=== PATIENT | male | born 1965 | race Caucasian/White ===

== ENCOUNTER 2017-04-07 13:35 | Inpatient (IN) ==
--- NOTE | 2017-04-06 21:27 | Discharge Summary ---
<DamarisTheodora rangelKesha L - Last Filed: 04/06/17 21:25> Date of Encounter: 04/06/17 - Discharge Diagnosis (1) Status post total knee replacement, right Priority: Primary Status: Acute (2) Arthritis of knee, right Priority: Primary Status: Acute (3) HTN (hypertension) Priority: Secondary Status: Chronic Qualifiers: Hypertension type: essential hypertension Qualified Code(s): I10 - Essential (primary) hypertension (4) CAD (coronary artery disease) Priority: Secondary Status: Chronic Qualifiers: Coronary Disease-Associated Artery/Lesion type: unspecified vessel or lesion type [place] vs. transplanted heart: [place] heart Associated angina: angina presence unspecified Qualified Code(s): I25.10 - Atherosclerotic heart disease of [place] coronary artery without angina pectoris (5) Obesity Priority: Secondary Status: Chronic Qualifiers: Obesity type: due to excess calories Obesity classification: unspecified obesity classification Serious obesity comorbidity presence: without serious comorbidity Qualified Code(s): E66.09 - Other obesity due to excess calories (6) Atrial fibrillation Priority: Secondary Status: Chronic Qualifiers: Atrial fibrillation type: unspecified Qualified Code(s): I48.91 - Unspecified atrial fibrillation (7) SKYLER (obstructive sleep apnea) Priority: Secondary Status: Chronic (8) Chronic pain Priority: Secondary Status: Chronic Comments: Holding chronic pain medication - Percocet 5/325 BID. Qualifiers: Chronic pain type: chronic pain syndrome Qualified Code(s): G89.4 - Chronic pain syndrome (9) jail current use of anticoagulant therapy Priority: Secondary Status: Chronic Comments: Resume Xarelto 20mg daily same day of surgery* - Discharge Medications Home Medications: OxyCODONE Immed Rel [Roxicodone 5 MG] 5 - 10 mg PO Q6HR PRN #40 tablet 04/06/17 [Rx] Aspirin 81 mg PO DAILY 04/07/17 [History] Atorvastatin [Lipitor] 40 mg PO DAILY 04/07/17 [History] Digoxin [Lanoxin] 0.125 mg PO DAILY 04/07/17 [History] Furosemide [Lasix] 80 mg PO DAILY 04/07/17 [History] Lisinopril [Zestril] 5 mg PO DAILY 04/07/17 [History] Metoprolol Succinate 200 mg PO DAILY 04/07/17 [History] Rivaroxaban [Xarelto] 20 mg PO DAILY 04/07/17 [History] Allergies/Adverse Reactions: 3 Allergy/AdvReac Type Severity Reaction Status Date / Time Sulfa (Sulfonamide AdvReac Severe Anaphylaxis Verified 04/07/17 13:53 Antibiotics) dye AdvReac Severe Anaphylaxis Uncoded 04/01/17 10:20 perflutren lipid microsphere AdvReac Severe Anaphylaxis Uncoded 04/01/17 10:20 Primary care physician: PCP NONE - Patient Status Disposition: Home, Self-Care Condition: Good - Discharge Instructions Follow Up With: NONE,PCP [Primary Care Provider] - - Hospital Course Hospital course: Mr. Bailey is a 52 year old male - Time Spent with Patient Total time spent providing and/or coordinating discharge services: <Can Vernon - Last Filed: 04/09/17 06:34> Date of Encounter: 04/09/17 Time of Encounter: 06:34 - Discharge Diagnosis (1) Morbid obesity with BMI of 45.0-49.9, adult Priority: Secondary Status: Chronic (2) Status post total knee replacement, right Priority: Primary Status: Acute (3) Arthritis of knee, right Priority: Primary Status: Chronic (4) HTN (hypertension) Priority: Secondary Status: Chronic Qualifiers: Hypertension type: essential hypertension Qualified Code(s): I10 - Essential (primary) hypertension (5) CAD (coronary artery disease) Priority: Secondary Status: Chronic Qualifiers: Coronary Disease-Associated Artery/Lesion type: unspecified vessel or lesion type [place] vs. transplanted heart: [place] heart Associated angina: angina presence unspecified Qualified Code(s): I25.10 - Atherosclerotic heart disease of [place] coronary artery without angina pectoris (6) Obesity Priority: Secondary Status: Chronic Qualifiers: Obesity type: due to excess calories Obesity classification: unspecified obesity classification Serious obesity comorbidity presence: without serious comorbidity Qualified Code(s): E66.09 - Other obesity due to excess calories (7) Atrial fibrillation Priority: Secondary Status: Chronic Qualifiers: Atrial fibrillation type: unspecified Qualified Code(s): I48.91 - Unspecified atrial fibrillation (8) SKYLER (obstructive sleep apnea) Priority: Secondary Status: Chronic (9) Chronic pain Priority: Secondary Status: Chronic Qualifiers: Chronic pain type: chronic pain syndrome Qualified Code(s): G89.4 - Chronic pain syndrome (10) jail current use of anticoagulant therapy Priority: Secondary Status: Chronic Primary care physician: PCP NONE - Patient Status Functional capacity at discharge: uses cane/walker Overall status at discharge: patient is progressing back to baseline - Hospital Course Hospital course: Mr. Bailey is a 52 year old male As post right total knee replacement The patient had an uneventful postoperative course. They received antibiotics and physical therapy and were discharged in stable condition. There will follow -up in the office in 2 weeks. - Time Spent with Patient Total time spent providing and/or coordinating discharge services:
--- NOTE | 2017-04-07 14:10 | History & Physical Report ---
Date of Encounter: 04/07/17 Time of Encounter: 14:09 24 Hour HP Update - Instructions Instructions: If the History and Physical is less than 30 days old and was completed prior to A.M. admission and or procedure and has NOT been updated on calendar day of procedure please complete this update prior to performing procedure. - Update Patient reports changes in Medical Condition: No Changes in examination, assessment, or condition: No Changes in Medication: No Preop tests/diagnostics Reviewed: No Surgery Remains Indicated: Yes Consent for Planned Operative Procedure(s) Verified: Yes - Pre-Operative Checklist Preoperative Checklist Indicated: No Prophylactic Antibiotic Ordered: Yes Is VTE Prophylaxis Indicated?: Yes
--- NOTE | 2017-04-07 14:14 | Anesthesia Evaluation PreOp ---
Date of Encounter: 04/07/17 Time of Encounter: 14:12 - Past History Planned Operation: r tka Cardiac History: [place], HTN, Hyperlipidemia, Arrhythmia (af), Cardiac Stent (lad, bms), Other (echo 04/03: lv systolic fct appears nl, rv appears nl size and fct... however, echo from 01/30 ef 30, but that was af/rvr. denies orthopnea/ pnd. +bilat ankle edema (r>L) with ecchymosis r>l (venous stasis)) Pulmonary History: Asthma, Snore SALVAGER History: Denies Any Significant HX Other Medical History: Denies Any Significant HX Anesthesia History: No Prior Anesthetic Complications, Past Anesthesia (vv, t&a , stent) Alcohol Use: occasionally Drug use: none Medications and Allergies OxyCODONE Immed Rel [Roxicodone 5 MG] 5 - 10 mg PO Q6HR PRN #40 tablet 04/06/17 [Rx] Aspirin 81 mg PO DAILY 04/07/17 [History] Atorvastatin [Lipitor] 40 mg PO DAILY 04/07/17 [History] Digoxin [Lanoxin] 0.125 mg PO DAILY 04/07/17 [History] Furosemide [Lasix] 80 mg PO DAILY 04/07/17 [History] Lisinopril [Zestril] 5 mg PO DAILY 04/07/17 [History] Metoprolol Succinate [Metoprolol Succinate] 200 mg PO DAILY 04/07/17 [History] Rivaroxaban [Xarelto] 20 mg PO DAILY 04/07/17 [History] 3 Allergy/AdvReac Type Severity Reaction Status Date / Time Sulfa (Sulfonamide AdvReac Severe Anaphylaxis Verified 04/07/17 13:53 Antibiotics) dye AdvReac Severe Anaphylaxis Uncoded 04/01/17 10:20 perflutren lipid microsphere AdvReac Severe Anaphylaxis Uncoded 04/01/17 10:20 - Meds/Allergy Pre-op Review Medications Reviewed: Yes Allergies Reviewed: Yes Beta Blockers on Current Med List: Yes If Beta Blockers taken, Date/Time (Last Dose taken): toprol xl at 0900 Anesthesia Results - Labs Laboratory Tests 03/24/17 03/24/17 03/24/17 07:02 07:02 07:02 Hgb 15.6 Hct 47.4 Plt Count 198 PT 12.0 INR 1.1 Sodium 140 Potassium 4.5 Creatinine 0.90 Hemoglobin A1c 03/24/17 07:02 Hgb Hct Plt Count PT INR Sodium Potassium Creatinine Hemoglobin A1c 6.1 H - Imaging EKG: report reviewed (04/03: af, rbbb, inf mi) Anesthesia Exam O2 Sat Height 1.88 m Weight 171.458 kg Height: 1.88 Weight: 171 NPO (# of Hours): >8 - HEENT Pupil (Motor): Pupils equal, EOMI Mallampati: III Teeth: Poor dentition Oral Opening: Greater than 3 (good underbite) - SALVAGER LOC: Oriented SALVAGER Motor: Normal RUE, Normal LUE, Normal RLE, Normal LLE, Normal Face SALVAGER Sensory: Normal: RUE, LUE, RLE, LLE, Face - Cardiac Rhythm: Regular Murmur: None - Pulmonary Breath Sounds: bilateral Clear Respiratory Effort: Symmetrical Anesthesia Assess/Plan ASA Score: 3 (lidocaine and ketamine gtt for analgesia, plus toradol) Modified Juliana Scale for Level of Consciousness: Cooperative, oriented, and tranquil Anesthetic Plan: General, Regional Monitoring Plan: Standard Monitors Recovery Plan: PACU
[2017-04-07] MEDS ORDERED: Ringers Solution, Lactated 1,000 ML IVC SCH (14:30)
[2017-04-07] MEDS ORDERED: CloNIDine Patch 0.1 MG PATCH (WEEKLY) TD SCH (14:30)
[2017-04-07] MEDS ORDERED: Lidocaine -MPF 1% 2 ML VIAL ID ONE (14:40)
[2017-04-07] MEDS ORDERED: CeFAZolin Pre 3,000 MG/100 ML 3,000 MG/100 ML BAG IVPB ONE (14:40)
[2017-04-07] MEDS ORDERED: Albuterol 2.5 MG/3 ML NEBULIZER ONE (14:44)
[2017-04-07] MEDS ORDERED: Plasma-Lyte A (PH 7.4) 1,000 ML IVC SCH (14:45)
[2017-04-07] MEDS: Albuterol 2.5 MG/3 ML NEBULIZER IH ONE (14:47)
[2017-04-07] MEDS ORDERED: *HR* FentaNYL (PF) 100 MCG/2 ML VIAL ONE (15:33)
[2017-04-07] MEDS ORDERED: Lidocaine -MPF 2% 2 ML VIAL ONE (15:34)
[2017-04-07] MEDS ORDERED: *HR* Succinylcholine 200 MG/10 ML VIAL IVP ONE (15:34)
[2017-04-07] MEDS ORDERED: *HR* Midazolam HCl 2 MG/2 ML VIAL ONE (15:34)
[2017-04-07] MEDS ORDERED: *HR* Propofol 200 MG/20 ML VIAL IVP ONE ×2 (15:34→16:42)
[2017-04-07] MEDS ORDERED: ROPIVACAINE HCL/PF 0.5% 30 ML VIAL ONE (16:21)
[2017-04-07] MEDS ORDERED: Bupivacaine/Clonidine Syringe 1 EACH SYRINGE ONE (16:22)
--- NOTE | 2017-04-07 16:48 | Anesthesia Procedures ---
Date of Encounter: 04/07/17 Time of Encounter: 16:47 Procedures: Anesthesia - Nerve Block Procedure Date: 04/07/17 Time: 16:46 Allergies/Adv Reactions: 3 Allergy/AdvReac Type Severity Reaction Status Date / Time Sulfa (Sulfonamide AdvReac Severe Anaphylaxis Verified 04/07/17 13:53 Antibiotics) dye AdvReac Severe Anaphylaxis Uncoded 04/01/17 10:20 perflutren lipid microsphere AdvReac Severe Anaphylaxis Uncoded 04/01/17 10:20 Pre-op Diagnosis: right knee oa Surgical Procedure: right tka Checklist: Correct Patient Identifier, Correct procedure, History checked Correct side: Right Blood Thinner: No Monitor Applied: EKG, BP, Pulse Oximetry Supplemental Oxygen via Nasal Cannula (L/min): 2 Sedation: Versed (mg): 2 Sedation: Fentanyl (mcg): 100 Indication: Post Op Analgesia Pre-op Neuro Deficits: No Block Type: Femoral (0.5% ropivicaine), Other (ipack 0.25% bupivicaine 20cc) Catheter placed: No Sterile Technique: Yes Ultrasound used: Yes Anatomy identified: Yes Visual spread of Local: Yes Neuro Stimulation: No Blood on Needle Aspiration: No Smooth Injection of Local: Yes Pain with Injection of Local: No Prep: Chlorhexadine Needle: 21 x 100 mm Stimuplex Local: 0.25% Bupivicaine w/Clonidine 20 mcg/cc, Ropivacaine Volume (cc): 50 Number of Attempts: 1 Complications: None/effective block
[2017-04-07] MEDS ORDERED: Ondansetron 4 MG/2 ML VIAL IVP ONE (16:49)
[2017-04-07] MEDS ORDERED: *HR* HYDROmorphone (PF) 1 MG/ML SYRINGE IVP PRN ×2 (16:49→19:44)
[2017-04-07] MEDS ORDERED: Dexamethasone 4 MG/ML VIAL ONE (17:55)
[2017-04-07] MEDS ORDERED: Ondansetron 4 MG/2 ML VIAL ONE (17:55)
[2017-04-07] MEDS ORDERED: *HR* Enoxaparin 30 MG/0.3 ML SYRINGE SQ SCH (18:00)
--- NOTE | 2017-04-07 18:06 | Orthopedic Operative Note ---
Date of procedure: 04/07/17 Pre-op diagnosis: Right knee arthritis Post-op diagnosis: same Procedure: Procedure: Right Total knee replacement Estimated blood loss: 400 cc Hardware: Metal and polyethylene replacement: Biomet Femur: 70, 22 x 120 Tibia: 83, 18 x 120 Maegan insert: 14 Patella: 37 Exam Under anesthesia: Loss full extension 10 degrees full flexion Procedural Notes: Grade 4 arthritic changes all 3 compartments. Operative procedure: The patient was brought to the operating room and placed on the operating room table. After general anesthesia was administered the operative knee was examined. Findings were noted in the exam under anesthesia. The operative extremity was prepped and draped in sterile surgical fashion. The patient received IV antibiotics prior to skin incision. A standard midline incision was made centered over the patella. The incision was made through the skin and subcutaneous tissue. A medial parapatellar tendon approach was performed. Care was taken to preserve tissue along the medial aspect of the patella. And to protect the patella tendon. The deep MCL was released off the medial tibia. The infra patella fat pad was excised. Knee was brought into flexion. The entry hole was made for the intramedullary femoral guide. The guide was seated in 6 degrees of valgus. Anterior cut was made followed by the distal cut. The PCL the medial and the lateral menisci were excised. The tibia was subluxed forward. The entry hole was made for the intramedullary tibial guide. Guide was seated to resect 2 mm off the more abnormal side. The knee was brought into flexion patient noted to have grade 4 arthritic changes all 3 compartments. The distal femur was sized to a 70 The femur was first reamed to a running 2 x 120 The femoral guide was seated, the anterior cut was made followed by the posterior condylar cut, followed by the chamfer cuts. The finishing guide was seated the box cut was made. Trial had good fit and fixation The tibia was sized to a an 83 The tibia was first reamed 18 x 120 Trial reduction revealed full extension no varus valgus instability with the appropriate 14 insert. The patella was everted and cut was made at the level of the insertion of the quadriceps and patella tendon. The patella was sized to a 37 the guide was seated and the lug holes are drilled. Trial reduction revealed excellent patella tracking. All trial components were removed all bony surfaces were irrigated. Components were assembled on the back table. The femur was cemented first followed by the tibia. The 14 Maegan was seated and secured. The knee was brought into full extension. The patella was cemented and held in place with the patellar holding clamp. After the cement had hardened, the knee sat for 2 minutes with a Betadine saline solution. The knee was closed by the PA. The knee was then irrigated out with 2 L of pulse irrigation. The extensor mechanism was closed with #2 FiberWire suture and #2 PDS suture. The subcutaneous tissue was then irrigated and closed deep with #1 PDS suture superficially with 0 PDS suture and skin was closed with skin mirian The patient was then placed in a sterile dressing and a postoperative brace extubated and transferred to recovery room in stable condition. Anesthesia: DANELLE Surgeon: Can Vernon Intellectual Property Manager: Kesha Barillas Condition: stable Disposition: PACU
--- NOTE | 2017-04-07 19:18 | Anesthesia Evaluation Post Op ---
Date of Encounter: 04/07/17 Time of Encounter: 19:18 - Vital Signs Vital Signs: Vital Signs/O2 Sat, Most Current Temp Pulse Resp BP Pulse Ox 97.4 F L 90 14 106/83 93 04/07/17 19:12 04/07/17 19:12 04/07/17 19:12 04/07/17 19:12 04/07/17 19:12 - Lungs Lungs: Clear Ascult./Percussion - Cardiovascular Regular Rate - Mental Status Mental Status: Alert & Oriented, Answers Appropriately - Pain Pain Scale: 0 Pain Scale used: Numeric (1 - 10) - Nausea Vomiting Nausea Vomiting: Not Present - Hydration Hydration: Ice chips, Has not voided - Discharge PostOp Status: Transfer Patient to floor
[2017-04-07 19:28] LABS: Hematocrit 45.3 % (37.5-50.1); Hemoglobin 14.5 g/dL (12.9-16.9)
[2017-04-07] MEDS ORDERED: *HR* HYDROmorphone 2 MG/ML SYRINGE ONE (19:38)
[2017-04-07] MEDS ORDERED: MOM Conc 10 ML UD.LIQ PO PRN (19:44)
[2017-04-07] MEDS ORDERED: Naloxone 0.4 MG/ML INJ IVP PRN (19:44)
[2017-04-07] MEDS ORDERED: Temazepam 15 MG CAPSULE PO PRN (19:44)
[2017-04-07] MEDS ORDERED: *HR* OxyCODONE Immed Rel 5 MG TABLET PO PRN (19:44)
[2017-04-07] MEDS ORDERED: Ondansetron 4 MG/2 ML VIAL IVP PRN (19:44)
[2017-04-07] MEDS ORDERED: Sennosides 8.6 MG TABLET PO PRN (19:44)
[2017-04-07] MEDS: ceFAZolin 3,000 MG in D5% in Water 100 ML IVPB SCH (20:48)
[2017-04-08] MEDS: ceFAZolin 3,000 MG in D5% in Water 100 ML IVPB SCH (04:36)
[2017-04-08] MEDS: *HR* OxyCODONE Immed Rel 5 MG TABLET PO PRN ×5 (04:36→20:56)
[2017-04-08] MEDS: Ringers Solution, Lactated 1,000 ML IVC SCH ×3 (04:37→22:26)
[2017-04-08 05:41] LABS: Hemoglobin 13.8 g/dL (12.9-16.9)
--- NOTE | 2017-04-08 06:40 | Orthopedics Progress Note ---
Date of Encounter: 04/08/17 Time of Encounter: 06:40 - Assessment and Plan (1) Morbid obesity with BMI of 45.0-49.9, adult Current Visit: Yes Status: Chronic (2) Status post total knee replacement, right Current Visit: Yes Status: Acute (3) Arthritis of knee, right Current Visit: Yes Status: Chronic (4) HTN (hypertension) Current Visit: Yes Status: Chronic Qualifiers: Hypertension type: essential hypertension Qualified Code(s): I10 - Essential (primary) hypertension (5) CAD (coronary artery disease) Current Visit: Yes Status: Chronic Qualifiers: Coronary Disease-Associated Artery/Lesion type: unspecified vessel or lesion type [place] vs. transplanted heart: [place] heart Associated angina: angina presence unspecified Qualified Code(s): I25.10 - Atherosclerotic heart disease of [place] coronary artery without angina pectoris (6) Obesity Current Visit: Yes Status: Chronic Qualifiers: Obesity type: due to excess calories Obesity classification: unspecified obesity classification Serious obesity comorbidity presence: without serious comorbidity Qualified Code(s): E66.09 - Other obesity due to excess calories (7) Atrial fibrillation Current Visit: Yes Status: Chronic Qualifiers: Atrial fibrillation type: unspecified Qualified Code(s): I48.91 - Unspecified atrial fibrillation (8) SKYLER (obstructive sleep apnea) Current Visit: Yes Status: Chronic (9) Chronic pain Current Visit: Yes Status: Chronic Qualifiers: Chronic pain type: chronic pain syndrome Qualified Code(s): G89.4 - Chronic pain syndrome (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 Afebrile vital signs stable. Operative extremity: Neurovascularly intact Dressing clean dry and intact Calves nontender Assessment and plan: Continue with postoperative care Hematocrit 43 Objective Vital signs: Vital Signs Temp Pulse Resp BP Pulse Ox 04/08/17 04:29 98.4 F 88 18 124/82 93 04/07/17 23:59 98.0 F 75 18 104/72 93 04/07/17 22:45 97.6 F 97 16 100/70 94 04/07/17 21:45 97.6 F 88 18 114/79 95 04/07/17 20:45 75 16 106/70 94 04/07/17 20:15 71 16 112/72 96 04/07/17 19:45 97.4 F L 81 16 123/81 96 04/07/17 19:22 97.4 F L 73 14 108/76 94 04/07/17 19:12 97.4 F L 90 14 106/83 93 04/07/17 19:02 92 14 96/79 94 04/07/17 18:52 78 16 106/65 96 04/07/17 18:42 97.3 F L 82 16 101/52 97 04/07/17 16:52 68 16 104/60 99 04/07/17 16:37 68 16 106/63 98 04/07/17 16:30 84 18 111/88 96 04/07/17 16:25 98.1 F 66 16 94/64 93 04/07/17 15:08 98.1 F 66 16 94/64 93 Intake and Output 04/07/17 04/07/17 04/08/17 15:59 23:59 07:59 Intake Total 100 / 100 1187 / 1187 Output Total 400 / 400 Balance -300 / -300 1187 / 1187 Intake: IV Fluids 100 / 100 100 / 100 Ancef 3,000 MG In 100 / 100 100 / 100 Dextrose 5% 100 ML @ 200 mls/hr IVPB Q8H BRODY Rx#: [id number] Oral 1087 / 1087 Output: Estimated Blood Loss 400 / 400 Other: # Voids 4 Weight 171.458 kg 171.458 kg - Labs CBC & BMP: 04/08/17 04:33 - VTE Documentation of Mechanical Device: Venous foot pump, device Consult Discharge Plan - Plan Referrals: NONE,PCP [Primary Care Provider] -
[2017-04-08] MEDS: Furosemide 40 MG TABLET PO SCH (08:39)
[2017-04-08] MEDS: Aspirin 81 MG TAB.CHEW PO SCH (08:39)
[2017-04-08] MEDS: *HR* Digoxin 0.125 MG TABLET PO SCH (08:40)
[2017-04-08] MEDS: *HR* Rivaroxaban 10 MG TABLET PO SCH (08:40)
[2017-04-08] MEDS: Metoprolol XL (24 HR) Succ 50 MG TAB.ER.24H PO SCH (08:41)
[2017-04-08 11:57] LABS: BUN/Creatinine Ratio 20 (6-26); Blood Urea Nitrogen 19 mg/dL (8-26); Calcium 8.8 mg/dL (8.6-10.8); Carbon Dioxide 24 mEq/L (19-29); Chloride 103 mEq/L (98-109); Glucose 130 mg/dL (70-99); Osmolality,Calculated 288 (280-300); Potassium 5.4 mEq/L (3.5-4.5); Sodium 137 mEq/L (136-145); eGFR For African Americans > 60 (> 60); eGFR For Non-African Americans > 60 (> 60)
--- NOTE | 2017-04-08 12:05 | Event Note ---
Date of Encounter: 04/08/17 Time of Encounter: 12:04 PCR - Right TKR - POD#1 Patient seen at bedside. Pain control: adequate - Chronic pain medication: Percocet BID - on hold Comorbidities: A.Fib - SKYLER Participating in PT. All questions and concerns addressed. Educated on use of incentive spirometer, ambulation, and hydration. Patient educated on post-operative restrictions and care. Addressed: D/C plan:. Home health or Outpatient* *Resumed Xarelto 04/08/17
--- NOTE | 2017-04-08 16:29 | Physician Discharge Referral ---
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 For more information, call the 2,10E+07 Tobacco Quit Line at 8-936-UZSI-NOW. - Dressing/Wound Care Type of Dressing/Treatments w/Frequency: Opsite dressing, leave intact until first post-operative visit. If dressing becomes >50% saturated, contact office, remove dressing and place appropriate dressing in its place. Do not allow for dressing to get wet. [place] in place, plan to remove at post-operative day #14-16. - Diet/Nutrition Diet/Nutrition Orders: Regular - Activity Activity Orders: Up ad jelena, Ambulate - Services Needed Following services are medically necessary services: Nursing, Home Health Aide, Physical Therapy, Occupational Therapy Home Care Orders: Total Joint Precautions x 6 weeks Apply cold therapy wrap 3-6x/day for 20 minutes at a time. Encourage ambulation throughout the day Use Incentive spirometer 10x/hour. Elevate affected extremity above heart as tolerated. Brace: Wear knee immobilizer at night x 2 weeks. - Transfer Medications Home Medications: OxyCODONE Immed Rel [Roxicodone 5 MG] 5 - 10 mg PO Q6HR PRN #40 tablet 04/06/17 [Rx] Aspirin 81 mg PO DAILY 04/07/17 [History] Atorvastatin [Lipitor] 40 mg PO DAILY 04/07/17 [History] Digoxin [Lanoxin] 0.125 mg PO DAILY 04/07/17 [History] Furosemide [Lasix] 80 mg PO DAILY 04/07/17 [History] Lisinopril [Zestril] 5 mg PO DAILY 04/07/17 [History] Metoprolol Succinate 200 mg PO DAILY 04/07/17 [History] Rivaroxaban [Xarelto] 20 mg PO DAILY 04/07/17 [History] Allergies/Adverse Reactions: 3 Allergy/AdvReac Type Severity Reaction Status Date / Time Sulfa (Sulfonamide AdvReac Severe Anaphylaxis Verified 04/07/17 13:53 Antibiotics) dye AdvReac Severe Anaphylaxis Uncoded 04/01/17 10:20 perflutren lipid microsphere AdvReac Severe Anaphylaxis Uncoded 04/01/17 10:20 Certification: Further, I certify that my clinical findings support that this patient is homebound (i.e. absences from home require considerable and taxing effort and are for medical reasons or anabaptism services or infrequently or short duration when for other reasons) because: Homebound Reason: Post-surgery restriction and or conditions limit ability to leave home Attestation: My signature below is to certify that this patient is under my care and that I, or nurse practitioner, or a physician's prosthetic assistant working with me, has a face-to -face encounter with this patient.
[2017-04-08] MEDS: Albuterol 2.5 MG/3 ML NEBULIZER IH ONE (21:29)
[2017-04-09] MEDS: *HR* OxyCODONE Immed Rel 5 MG TABLET PO PRN ×3 (01:02→09:13)
--- NOTE | 2017-04-09 06:35 | Orthopedics Progress Note ---
Date of Encounter: 04/09/17 Time of Encounter: 06:35 - Assessment and Plan (1) Morbid obesity with BMI of 45.0-49.9, adult Current Visit: Yes Status: Chronic (2) Status post total knee replacement, right Current Visit: Yes Status: Acute (3) Arthritis of knee, right Current Visit: Yes Status: Chronic (4) HTN (hypertension) Current Visit: Yes Status: Chronic Qualifiers: Hypertension type: essential hypertension Qualified Code(s): I10 - Essential (primary) hypertension (5) CAD (coronary artery disease) Current Visit: Yes Status: Chronic Qualifiers: Coronary Disease-Associated Artery/Lesion type: unspecified vessel or lesion type [place] vs. transplanted heart: [place] heart Associated angina: angina presence unspecified Qualified Code(s): I25.10 - Atherosclerotic heart disease of [place] coronary artery without angina pectoris (6) Obesity Current Visit: Yes Status: Chronic Qualifiers: Obesity type: due to excess calories Obesity classification: unspecified obesity classification Serious obesity comorbidity presence: without serious comorbidity Qualified Code(s): E66.09 - Other obesity due to excess calories (7) Atrial fibrillation Current Visit: Yes Status: Chronic Qualifiers: Atrial fibrillation type: unspecified Qualified Code(s): I48.91 - Unspecified atrial fibrillation (8) SKYLER (obstructive sleep apnea) Current Visit: Yes Status: Chronic (9) Chronic pain Current Visit: Yes Status: Chronic Qualifiers: Chronic pain type: chronic pain syndrome Qualified Code(s): G89.4 - Chronic pain syndrome (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 Afebrile vital signs stable. Operative extremity: Neurovascularly intact Dressing clean dry and intact Calves nontender Assessment and plan: Continue with postoperative care Hematocrit 43 discharged today Objective Vital signs: Vital Signs Temp Pulse Resp BP Pulse Ox 04/09/17 04:02 98.9 F 102 20 140/78 94 04/08/17 23:46 99.3 F 94 21 135/86 95 04/08/17 20:13 99.1 F 94 20 127/78 97 04/08/17 15:51 99.0 F 75 16 129/92 97 04/08/17 11:20 98.6 F 84 16 131/86 95 04/08/17 06:54 98.5 F 81 16 117/78 95 Intake and Output 04/08/17 04/08/17 04/09/17 15:59 23:59 07:59 Intake Total 720 / 720 600 / 600 800 / 800 Output Total 475 / 475 650 / 650 500 / 500 Balance 245 / 245 -50 / -50 300 / 300 Intake: Oral 720 / 720 600 / 600 800 / 800 Output: Urine 475 / 475 650 / 650 500 / 500 Other: Meal Lunch Dinner Percent of Meal Consumed 100% 80% Weight 174.1 kg - Labs CBC & BMP: 04/08/17 04:33 04/08/17 06:36 Labs: Abnormal lab results Potassium 5.4 mEq/L (3.5-4.5) H 04/08/17 06:36 Glucose 130 mg/dL (70-99) H 04/08/17 06:36 - VTE Documentation of Mechanical Device: Venous foot pump, device Consult Discharge Plan - Plan Referrals: NONE,PCP [Primary Care Provider] -
[2017-04-09 06:40] LABS: Hematocrit 38.7 % (37.5-50.1); Hemoglobin 12.9 g/dL (12.9-16.9)
[2017-04-09 06:53] LABS: BUN/Creatinine Ratio 18 (6-26); Blood Urea Nitrogen 14 mg/dL (8-26); Carbon Dioxide 26 mEq/L (19-29); Chloride 102 mEq/L (98-109); Glucose 138 mg/dL (70-99); Osmolality,Calculated 285 (280-300); Sodium 136 mEq/L (136-145); eGFR For African Americans > 60 (> 60); eGFR For Non-African Americans > 60 (> 60)
[2017-04-09 06:56] LABS: Potassium 4.3 mEq/L (3.5-4.5)
[2017-04-09] MEDS: *HR* Digoxin 0.125 MG TABLET PO SCH (09:06)
[2017-04-09] MEDS: Furosemide 40 MG TABLET PO SCH (09:06)
[2017-04-09] MEDS: Aspirin 81 MG TAB.CHEW PO SCH (09:06)
[2017-04-09] MEDS: Metoprolol XL (24 HR) Succ 50 MG TAB.ER.24H PO SCH (09:07)
[2017-04-09] MEDS: *HR* Rivaroxaban 10 MG TABLET PO SCH (10:55)
--- NOTE | 2017-04-09 11:19 | Event Note ---
Date of Encounter: 04/09/17 Time of Encounter: 11:50 PCR - Right TKR - POD#2 Patient seen at bedside. 12.9/38.7 Pain control: adequate - Chronic pain medication: Percocet BID - on hold. Will change to Percocet today from Oxycodone and add Lidoderm. Comorbidities: A.Fib - SKYLER Participating in PT. Recommending short term inpatient rehab - patient agreeable. All questions and concerns addressed. Educated on use of incentive spirometer, ambulation, and hydration. Patient educated on post-operative restrictions and care. Addressed: D/C plan:. ECF - continuity placed *Resumed Xarelto 04/08/17
[2017-04-09] MEDS ORDERED: *HR* OxyCODONE/APAP 5/325 TABLET PO PRN ×2 (11:38→11:59)
[2017-04-09 11:39] VITALS: BP 134/86
[2017-04-09] MEDS ORDERED: *HR* OxyCODONE/APAP 10/325 TABLET PO PRN ×2 (11:39→11:58)
== END 2017-04-09 16:37 | disposition home or self-care (01) | DRG 470 ==
LOC: SAMDAY 13:35 → 3NENU 19:41
PROVIDERS: ADMIT Orthopaedic Surgery; ATTEND Orthopaedic Surgery